=== PATIENT | male | born 1965 | race Caucasian/White ===

== ENCOUNTER → 2016-12-05 | Outpatient (CLI) | payer OTHER ==
--- NOTE | 2016-12-05 11:19 | XR ---
EXAM TYPE: LUMBAR SPINE X RAY SERIES COMPARISON: NONE HISTORY: Back pain TECHNIQUE: 4 views are submitted. FINDINGS: Alignment is anatomic. The pedicles are intact. The transverse processes are intact. There is no s pondylolysis or spondylolisthesis. Facet arthropathy L4-5 and L5-S1. Degenerative disc disease to a mild degree L3-4 and L4-5 with severe changes at L5-S1. IMPRESSION: 1. Bilevel degenerative disc disease and facet arthropathy with severe changes at L5-S1. Consider MRI follow-up..
--- NOTE | 2016-12-05 11:20 | XR ---
EXAMINATION TYPE: XR pelvis AP view DATE OF EXAM: 12/05/2016 COMPARISON: NONE HISTORY: Pain The osseous structures are intact and the joint spaces are preserved. No acute fracture is seen. Vi sualized bowel gas pattern is nonspecific. Small benign lesion right femoral neck. Herniation pit nehemiah epps the etiology. IMPRESSION: 1. No acute fracture.
== END | disposition home or self-care (01) ==
LOC: RADXRMAIN 10:29
PROVIDERS: ATTEND Family Medicine
DX: M51.37 Other intervertebral disc degeneration, lumbosacral region (principal); M46.07 Spinal enthesopathy, lumbosacral region
CPT/HCPCS: 72110; 72170

== ENCOUNTER 2018-03-07 07:53 | Day surgery (SDC) | payer OTHER ==
[2018-03-04 16:13] VITALS: BMI 25.1
[~2018-03-07 07:53] MED LIST: LACTATED RINGERS 1,000 ML IV SCH
[2018-03-07 08:13] VITALS: TEMP 98.4
[2018-03-07] MEDS ORDERED: LIDOCAINE 1% INJ 10MG/ML (20 ML MDV) ONE (08:54)
[2018-03-07] MEDS ORDERED: PROPOFOL 10 MG/ML 20 ML VIAL IV ONE (08:54)
--- NOTE | 2018-03-07 09:09 | P.GSHP ---
History of Present Illness H&P Date: 03/07/18 Chief Complaint: Colon cancer screening Patient today for elective colonoscopy. He has not had one previously. No bowel related complaints. No family history colon cancer. Past Medical History Past Medical History: Hypertension Additional Past Medical History / Comment(s): tinnitus History of Any Multi-Drug Resistant Organisms: None Reported Past Surgical History: No Surgical Hx Reported Past Anesthesia/Blood Transfusion Reactions: No Reported Reaction Smoking Status: Never smoker - Past Family History Mother Family Medical History: No Reported History Medications and Allergies Home Medications Medication Instructions Recorded Confirmed Type Lisinopril 1 tab PO DAILY 03/04/18 03/07/18 History Allergies Allergy/AdvReac Type Severity Reaction Status Date / Time No Known Allergies Allergy Verified 03/04/18 16:03 Surgical - Exam Vital Signs Temp Pulse Resp BP Pulse Ox 98.4 F 69 16 139/79 94 L 03/07/18 08:11 03/07/18 08:11 03/07/18 08:11 03/07/18 08:11 03/07/18 08:11 Physical exam: General: Well-developed, well-nourished HEENT: Normocephalic, sclerae nonicteric Abdomen: Nontender, nondistended Extremities: No edema Neuro: Alert and oriented Assessment and Plan (1) Colon cancer screening Narrative/Plan: Will proceed with colonoscopy at this time. Current Visit: Yes Status: Acute Code(s): Z12.11 - ENCOUNTER FOR SCREENING FOR MALIGNANT NEOPLASM OF COLON SNOMED Code(s): 037468535
--- NOTE | 2018-03-07 09:26 | P.PCN ---
Date of Procedure: 03/07/18 Procedure(s) Performed: PREOPERATIVE DIAGNOSIS: Colon cancer screening POSTOPERATIVE DIAGNOSIS: Small transverse colon polyp PROCEDURE: Colonoscopy with biopsy ANESTHESIA: MAC SURGEON: Bakari Escudero M.D. SPECIMENS: Transverse colon polyp ENDOSCOPIC PROCEDURE: The patient was placed on the endoscopy table in the left decubitus position. The Olympus colonoscope was inserted into the anus and passed under direct visualization to the base of the cecum. The appendiceal orifice was visualized. From that point the scope was slowly withdrawn inspecting all surfaces carefully. There were no neoplastic inflammatory or polypoid lesions throughout the cecum and ascending colon. In the proximal transverse colon a small polyp was identified and removed using the cold biopsy forceps. The remainder of the transverse descending sigmoid and rectum appeared normal. There was no visible diverticulosis. Digital rectal examination was normal. The patient was taken to the recovery room in stable condition per anesthesia guidelines. RECOMMENDATIONS: Await biopsy results to determine the timing of the next colonoscopy.
[2018-03-07 09:58] VITALS: BP 118/62; PULSE 65; RESP 16
== END 2018-03-07 10:13 | disposition home or self-care (01) ==
LOC: ORWHC2ENDO 07:53
PROVIDERS: ATTEND Surgery
DX: Z12.11 Encounter for screening for malignant neoplasm of colon (principal); D12.3 Benign neoplasm of transverse colon; I10 Essential (primary) hypertension; H93.19 Tinnitus, unspecified ear; Z79.899 Other long term (current) drug therapy
CPT/HCPCS: 88305; 45380; J2001; J2704

== ENCOUNTER → 2018-12-01 | Outpatient (CLI) | payer OTHER ==
--- NOTE | 2018-12-01 16:51 | CT ---
EXAMINATION TYPE: CT abdomen pelvis wo con DATE OF EXAM: 12/01/2018 COMPARISON: None HISTORY: Left flank pain CT DLP: mGycm Automated exposure control for dose reduction was used. TECHNIQUE: Helical acquisition of images was performed from the lung bases through the pelvis. There is oral contrast. FINDINGS: Lung bases are clear. There is no pleural effusion. Heart size is normal. There is no pericardial eff usion. Stomach appears normal. Liver spleen pancreas gallbladder appear normal. Bile ducts are not di lated. There is no adrenal mass. Kidneys have normal size. There is no hydronephrosis. There is 3.3 c m cortical cyst posterior right kidney. There is no evidence of renal calculus. Ureters are not dilat ed. There is no retroperitoneal adenopathy. Bladder distends smoothly. There is no free fluid in the pelvis. There is 1 cm exophytic cortical cyst lateral left kidney. There is no mesenteric edema. There is no ascites or free air. There is degenerative disc space narro wing at L5-S1. I see no bony destructive process. There is no lumbar compression fracture. Bony pelvi s appears intact. The appendix is upper limit of normal thickness. I see no surrounding inflammatory changes. Appendix measures 7 to 8 mm. There is no intestinal wall thickening. There are no dilated lo ops. IMPRESSION: NORMAL APPENDIX. RENAL CORTICAL CYSTS. NO SIGN OF ACUTE ABDOMEN AND PELVIS. I DO NOT SEE A CAUSE FOR LEFT-SIDED FLANK PAIN.
== END | disposition home or self-care (01) ==
LOC: RADCTMAIN 14:47
PROVIDERS: ATTEND Urology
DX: N28.1 Cyst of kidney, acquired (principal)
CPT/HCPCS: 74176

== ENCOUNTER → 2021-05-09 | Outpatient (CLI) | payer OTHER ==
--- NOTE | 2021-05-09 12:02 | XR ---
KUB HISTORY: Abdomen pain Frontal KUB correlated to CT scan 12/01/2018 There is a sclerotic density within the right ilium consistent with bone island. No evident bowel obs truction or pneumoperitoneum. Bone mineralization is stable. No pathologic calcification. IMPRESSION: No significant abnormality is evident.
== END | disposition home or self-care (01) ==
LOC: RADXRMAIN 09:49
PROVIDERS: ATTEND Family Medicine
DX: R10.9 Unspecified abdominal pain (principal)
CPT/HCPCS: 74018

== ENCOUNTER → 2021-07-31 | Outpatient (CLI) | payer OTHER ==
--- NOTE | 2021-07-31 16:17 | US ---
EXAMINATION TYPE: US abdomen complete DATE OF EXAM: 07/31/2021 COMPARISON: CT CLINICAL HISTORY: [id number] GENERALIZED ABDOMINAL PAIN. Generalized ABD pain EXAM MEASUREMENTS: Liver Length: 14.5 cm Gallbladder Wall: 0.2 cm CBD: 0.3 cm Spleen: 10.0 cm Right Kidney: 10.5 x 4.3 x5.9 cm Left Kidney: 9.4 x 4.9 x 5.3 cm Pancreas: wnl Liver: Cyst right dome area= 0.8 x 0.8 x 0.8 cm Gallbladder: wnl Evidence for sonographic Wisdom's sign: No CBD: wnl Spleen: wnl Right Kidney: Cyst lateral= 3.6 x 3.4 x 3.6 cm Left Kidney: Cyst mid= 0.7 x 0.7 x 0.6 cm Upper IVC: wnl Abd Aorta: wnl IMPRESSION: Bilateral renal cysts. A hepatic cyst may be present.
== END | disposition home or self-care (01) ==
LOC: RADUSWWP 12:28
PROVIDERS: ATTEND Family Medicine
DX: N28.1 Cyst of kidney, acquired (principal)
CPT/HCPCS: 76700

== ENCOUNTER → 2022-11-19 | Outpatient (CLI) | payer OTHER ==
--- NOTE | 2022-11-19 13:50 | XR ---
EXAMINATION TYPE: XR elbow limited RT DATE OF EXAM: 11/19/2022 COMPARISON: NONE HISTORY: Pain FINDINGS: Two views of the elbow demonstrate no pathologic joint effusion. The osseous structures are intact. There is no acute fracture or dislocation. IMPRESSION: 1. No acute fracture or dislocation. If symptoms persist follow-up study in 7 to 10 days could be ob tained.
== END | disposition home or self-care (01) ==
LOC: RADXRMAIN 13:23
PROVIDERS: ATTEND Family Medicine
DX: S59.901A Unspecified injury of right elbow, initial encounter (principal)

== ENCOUNTER 2023-01-22 09:47 | Day surgery (SDC) | payer OTHER ==
[2023-01-15 09:46] VITALS: BMI 25.7
[~2023-01-22 09:47] MED LIST changes: +LIDOCAINE 1% (10MG/ML) FOR IV START INTRADERMA PRN
[2023-01-22 10:19] VITALS: RESP 16; TEMP 98.3
[2023-01-22] MEDS ORDERED: LIDOCAINE 1% INJ 10MG/ML (20 ML MDV) ONE (10:26)
[2023-01-22] MEDS ORDERED: PROPOFOL 10 MG/ML 20 ML VIAL IV ONE (10:26)
--- NOTE | 2023-01-22 10:29 | P.GSHP ---
History of Present Illness H&P Date: 01/22/23 Chief Complaint: History of polyps, screening 57-year-old male here for colonoscopy. Last colonoscopy 5 years ago. The patient had a tubular adenoma at the time. No bowel complaints. No family history of colon cancer. Past Medical History Past Medical History: Hypertension Additional Past Medical History / Comment(s): tinnitus History of Any Multi-Drug Resistant Organisms: None Reported Past Surgical History: No Surgical Hx Reported Additional Past Surgical History / Comment(s): colonoscopy Past Anesthesia/Blood Transfusion Reactions: No Reported Reaction Additional Past Anesthesia/Blood Transfusion Reaction / Comment(s): no blood transfusion Smoking Status: Never smoker - Past Family History Mother Family Medical History: No Reported History Medications and Allergies Home Medications Medication Instructions Recorded Confirmed Type Losartan [Cozaar] 25 mg PO DAILY 01/15/23 01/22/23 History Allergies Allergy/AdvReac Type Severity Reaction Status Date / Time No Known Allergies Allergy Verified 01/15/23 09:33 Surgical - Exam Vital Signs Temp Pulse Resp BP Pulse Ox 98.3 F 72 16 155/86 96 01/22/23 10:05 01/22/23 10:05 01/22/23 10:05 01/22/23 10:05 01/22/23 10:05 Physical exam: General: Well-developed, well-nourished HEENT: Normocephalic, sclerae nonicteric Abdomen: Nontender, nondistended Extremities: No edema Neuro: Alert and oriented Assessment and Plan (1) Colon cancer screening Narrative/Plan: Will proceed with colonoscopy at this time Current Visit: No Status: Acute Code(s): Z12.11 - ENCOUNTER FOR SCREENING FOR MALIGNANT NEOPLASM OF COLON SNOMED Code(s): 488114552
--- NOTE | 2023-01-22 10:43 | P.PCN ---
Date of Procedure: 01/22/23 Procedure(s) Performed: PREOPERATIVE DIAGNOSIS: Colon cancer screening POSTOPERATIVE DIAGNOSIS: Normal exam PROCEDURE: Colonoscopy ANESTHESIA: MAC SURGEON: Bakari Escudero M.D. SPECIMENS: None ENDOSCOPIC PROCEDURE: The patient was placed on the endoscopy table in the left decubitus position. The Olympus colonoscope was inserted into the anus and passed under direct visualization to the base of the cecum. The appendiceal orifice was visualized. From that point the scope was slowly withdrawn inspecti ng all surfaces carefully. There were no neoplastic inflammatory or polypoid lesions throughout the cecum, ascending, transverse, descending, sigmoid and rectum. There was no visible diverticulosis noted. Digital rectal examination was normal. The patient was taken to the recovery room in stable condition per anesthesia guidelines. RECOMMENDATIONS: Resume diet. Repeat colonoscopy 5-7 years.
[2023-01-22 11:17] VITALS: BP 128/89; PULSE 70
== END 2023-01-22 11:33 | disposition home or self-care (01) ==
LOC: ORWHC2ENDO 09:47
PROVIDERS: ATTEND Surgery
DX: Z12.11 Encounter for screening for malignant neoplasm of colon (principal); I10 Essential (primary) hypertension; Z79.899 Other long term (current) drug therapy; Z86.010 Personal history of colon polyps
CPT/HCPCS: 45378; J2001; J2704